=== PATIENT | female | born 1995 | race Caucasian/White ===

== ENCOUNTER 2021-09-08 19:27 | Emergency (ER) | payer OTHER, SELFPAY ==
[2021-09-08] VITALS (12 sets, daily range): BP systolic 114–134; BP diastolic 65–86; PULSE 84–103; RESP 11–24; TEMP 36.8; O2SAT 100
--- NOTE | ~2021-09-08 | XR_ITS ---
EXAMINATION: XR chest 2V EXAM DATE: 09/08/2021 20:05 INDICATION: Chest pain X 1 Month And Heart Palpatation, No Cardiac Hx. TECHNIQUE: Frontal and lateral projections of the chest obtained and reviewed. There is no prior armando dy for comparison. FINDINGS: There are no acute fractures or dislocations identified. There is no subcutaneous gas. Th e soft tissue is unremarkable. There are no radiopaque foreign bodies. IMPRESSION: No acute osseous findings. Reviewed, dictated and finalized at location G. IMPRESSION: No acute osseous findings.
--- NOTE | 2021-09-08 19:43 | ECG_ITS ---
Measurements Intervals [place] Rate: 99 P: 71 [place]: 137 QRS: 51 QRSD: 74 T: 44 QT: 340 QTc: 438 Interpretive Statements SINUS RHYTHM NORMAL ECG NO PREVIOUS ECG AVAILABLE FOR COMPARISON Electronically Signed On 09-09-2021 8:31:53 CDT by Feliz Lowry M.D.
[2021-09-08 19:50] LABS: Basophils Percent Auto 0.6 % (0.2-1.2); Eosinophils Absolute Auto 0.1 K/mm3 (0-0.3); Eosinophils Percent Auto 1.8 % (0-4.4); Hematocrit 39.5 % (37.0-47.0); Hemoglobin 13.4 g/dL (12.0-15.0); Immature Granulocyte Absolute 0.01 K/mm3 (0.00-0.031); Immature Granulocyte Percent A 0.1 % (0-0.5); Lymphocytes Percent Auto 29.1 % (18.3-44.2); Mean Corpuscular HGB Conc 33.9 g/dl (32-36); Mean Corpuscular Hemoglobin 30.5 pg (26-34); Mean Corpuscular Volume 89.8 fl (80-100); Monocytes Absolute Auto 0.6 K/mm3 (0.1-0.6); Monocytes Percent Auto 7.6 % (2.6-8.5); Neutrophils Absolute Auto 4.4 K/mm3 (1.3-6.7); Neutrophils Percent Auto 60.8 % (45.5-73.1); Platelet Count Result 275 k/mm3 (150-375); Red Cell Distribution Width 11.7 % (11.5-14.5); White Blood Count 7.2 K/mm3 (4.5-10.0)
[2021-09-08 20:00] LABS: Partial Thromboplastin Time 27.4 SECONDS (22.3-36.8); Prothrombin Time 12.4 Seconds (11.1-14.7)
[2021-09-08 20:02] LABS: Alanine Aminotransferase 32 U/L (4-35); Albumin Level 4.8 g/dL (3.5-5.1); Alkaline Phosphatase 73 U/L (38-126); Anion Gap 10 mmol/L (8-16); Aspartate Amino Transferase 36 U/L (14-36); Bilirubin,Total 0.5 mg/dL (0.2-1.3); Blood Urea Nitrogen 13 mg/dL (7-17); Calcium 8.9 mg/dL (8.4-10.2); Carbon Dioxide 24 mmol/L (22-30); Chloride 106 mmol/L (98-107); Estimated CRCL calculation 102 ml/min; Estimated Glomerular Filt Rate > 60; Glucose 106 mg/dL (65-110); Lipase 103 U/L (23-300); Potassium 3.7 mmol/L (3.4-5.0); Sodium 140 mmol/L (137-145)
[2021-09-08 20:13] LABS: Troponin I < 0.012 ng/mL (0.000-0.034)
[2021-09-08] MEDS: BELLADONNA ALK/PHENOB ELIX 10 ML, MAG HYDROX/ALUMINUM HYD/SIMETH 30 ML, LIDOCAINE HCL 2... PO (20:24)
[2021-09-08 20:49] LABS: D Dimer 0.27 ug/mL (<0.48)
--- NOTE | 2021-09-08 20:54 | ED.CHESTPAIN ---
HPI - Chest Pain General Chief Complaint: Chest Pain Stated Complaint: fast heart rate Time Seen by Provider: 09/08/21 19:33 History of Present Illness HPI narrative: Patient is a 26-year-old female who presents ER with chest discomfort and elevated heart rate. Reports has been ongoing for 2 days. Symptoms can last a couple seconds for couple of minutes. No aggravating or alleviating factors that she is noticed. Has aching discomfort over the central upper chest. No radiation. Notes her heart rate will get up to 110 or 130 bpm. No lightheadedness/nausea/vomiting. No dyspnea. No exertional component no lower extremity swelling or calf cramping. No hemoptysis. No pain with deep breath. Has had similar symptoms in the past without diagnosis. Related Data Allergies Allergy/AdvReac Type Severity Reaction Status Date / Time Sulfa (Sulfonamide AdvReac Rash Verified 09/08/21 21:20 Antibiotics) Review of Systems Review of Systems: All systems reviewed & are unremarkable except as noted in HPI and below Constitutional: Constitutional: Denies chills, Denies fever(s) and Denies weakness ENT: Denies nasal congestion and Denies sore throat Cardiovascular: Cardiovascular: Reports chest pain, Reports rapid heart rate and Denies radiating jaw, neck or arm pain Respiratory: Respiratory: Denies cough, Denies dyspnea and Denies wheezing Gastrointestinal: Gastrointestinal: Denies abdominal pain, Denies heartburn, Denies nausea and Denies vomiting Neurologic: Denies headache(s), Denies focal weakness and Denies numbness PMFSH Past Medical History Medical History (Updated 09/08/21 @ 22:00 by Ever Burk MD) Healthy female adult Surgical History Surgical History (Updated 09/08/21 @ 20:55 by Ever Burk MD) No history of previous surgery Social History Social History (Updated 09/08/21 @ 20:55 by Ever Burk MD) Smoking status: Never smoker Exam Narrative: GENERAL: Well-appearing, well-nourished, and in no acute distress. HEAD: Normocephalic, atraumatic. EYES: PERRL and EOMI. CHEST: Clear to auscultation. No respiratory distress. HEART: Regular rate and rhythm. Normal peripheral pulses. ABDOMEN: Soft, nontender, nondistended. EXTREMITIES: Normal range of motion. No edema. SKIN: Warm, dry, no rash. NEURO: Alert and oriented x3. PSYCH: Normal mood and affect. Course Course Emergency Course: Unremarkable evaluation. D/c home. Vital Signs Vital signs: Vital Signs Temperature 98.3 F 09/08/21 19:31 Pulse Rate 103 H 09/08/21 19:31 Respiratory Rate 15 09/08/21 19:31 Blood Pressure 130/86 09/08/21 19:31 Pulse Oximetry 100 09/08/21 19:31 Temperature 98.3 F 09/08/21 19:31 Pulse Rate 99 09/08/21 20:46 Respiratory Rate 19 09/08/21 20:46 Blood Pressure 118/73 09/08/21 20:46 Pulse Oximetry 100 09/08/21 20:46 MDM - Chest Pain Lab Data Result diagrams: 09/08/21 19:45 09/08/21 19:45 Labs: Lab Results 09/08/21 09/08/21 09/08/21 Range/Units 19:45 19:45 19:45 WBC 7.2 (4.5-10.0) K/mm3 RBC 4.40 (4.2-5.4) M/mm3 Hgb 13.4 (12.0-15.0) g/dL Hct 39.5 (37.0-47.0) % MCV 89.8 (80-100) fl MCH 30.5 (26-34) pg MCHC 33.9 (32-36) g/dl RDW 11.7 (11.5-14.5) % Plt Count 275 (150-375) k/mm3 MPV 9.0 (7.4-10.4) fl Immature Gran % (Auto) 0.1 (0-0.5) % Neut % (Auto) 60.8 (45.5-73.1) % Lymph % (Auto) 29.1 (18.3-44.2) % [place] % (Auto) 7.6 (2.6-8.5) % Eos % (Auto) 1.8 (0-4.4) % Baso % (Auto) 0.6 (0.2-1.2) % Lymph # (Auto) 2.10 (0.9-3.2) K/mm3 [place] # (Auto) 0.6 (0.1-0.6) K/mm3 Eos # (Auto) 0.1 (0-0.3) K/mm3 Baso # (Auto) 0.0 (0.0-0.1) K/mm3 Abs Immat Gran (auto) 0.01 (0.00-0.031) K/mm3 Absolute Neuts (auto) 4.4 (1.3-6.7) K/mm3 Absolute Nucleated RBC 0.0 (0.0-0.012) K/mm3 Nucleated RBC % 0.0 (0.0-0.2) % PT 12.4 (11.1-14.7
[2021-09-08] MEDS: KETOROLAC 30 MG/ML VIAL (*BKC) IV PUSH (21:19)
--- NOTE | 2021-09-08 21:22 | PC.NURSE ---
Patient reported no change in her pain with the GI cocktail. Patient did report that the pain is intermittent and is her heart .
== END 2021-09-08 22:05 | disposition home or self-care (01) ==
PROVIDERS: Emergency Provider Emergency Medicine; PCP Family Medicine
DX: R07.89 Other chest pain (principal)
CPT/HCPCS: 36415; 71046; 80053; 83690; 84484; 85025; 85380; 85610; 85730; 93005; 96374; 99284; A9270; J1885